=== PATIENT | female | born 1950 | race Caucasian/White ===

== ENCOUNTER → 2017-05-13 20:20 | Outpatient (CLI) | payer MEDICARE ==
[2015-09-05 07:33] VITALS: BMI 25.6
[~2017-05-13 20:20] MED LIST: CARAFATE1 G PO; CATAPRES0.1 MG; CATAPRES0.1 MG PO; ELAVIL25 MG PO; ELAVIL75 MG PO; KEFLEX500 MG PO; LEVOXYL25 MCG PO; LEXAPRO10 MG PO; NORVASC10 MG PO; NORVASC5 MG PO; PERCOCET 10/3251 TA1 PO; PRILOSEC20 MG PO; SYNTHROID50 MCG PO; ZOCOR20 MG; ZOCOR20 MG PO
== END | disposition home or self-care (01) ==
LOC: D.LABREF 20:20
DX: B95.62 Methicillin resistant Staphylococcus aureus infection as the cause of diseases classified elsewhere (principal)

== ENCOUNTER → 2017-11-09 13:43 | Outpatient (CLI) | payer MEDICARE ==
[2015-09-05 07:33] VITALS: BMI 25.6
[~2017-11-09 13:43] MED LIST changes: +CELEXA10 MG PO; +TAMOXIFEN CITRA20 MG PO
== END | disposition home or self-care (01) ==
LOC: D.MAMMO 08:30
DX: C50.112 Malignant neoplasm of central portion of left female breast (principal)

== ENCOUNTER 2017-11-12 11:49 | Day surgery (SDC) | payer MEDICARE ==
[~2017-11-12] VITALS: Ht 157.5 cm; Wt 59.1 kg
[~2017-11-12 11:49] MED LIST changes: -CELEXA10 MG PO; -TAMOXIFEN CITRA20 MG PO
[2017-11-12 12:40] LABS: HEMATOCRIT 37.9 % (36.0-48.0); HEMOGLOBIN 12.9 g/dL (12-16); MCV 88.1 fL (80.0-100.0); MEAN PLATELET VOLUME 9.8 fL (7.4-10.4); RBC 4.3 10x6/uL (4.00-5.40); RDW 12.6 % (11.5-14.5); WBC 7.4 10x3/uL (4.8-10.8)
[2017-11-12] MEDS ORDERED: CELEXA10 MG PO (12:46)
[2017-11-12] MEDS ORDERED: TAMOXIFEN CITRA20 MG PO (12:47)
[2017-11-12 12:49] LABS: ANION GAP 20.7 mmol/L (8-16); CALCIUM 8.6 mg/dL (8.5-10.1); CARBON DIOXIDE 21.3 mmol/L (21.0-32.0); CREATININE - SERUM 2.1 mg/dL (0.6-1.3)
[2017-11-12 12:51] VITALS: BP 130/67; Ht 157.5 cm; Wt 59.1 kg
--- NOTE | 2017-11-25 18:55 | OP ---
PATIENT NAME: ARLEN CAZARES MEDICAL RECORD: [id number] :54 LOCATION:[facility] ADMISSION DATE: SURGEON: KIERRA ALFRED MD DATE OF OPERATION: 11/12/2017 PROCEDURE: Colonoscopy. REFERRING PHYSICIAN: Anu Sierra MD ADOPTION AGENT/ONCOLOGIST: Emiliano Lou MD INDICATIONS: Ms. Cazares is a delightful 67-year-old woman with a history of juvenile rheumatoid arthritis and breast cancer. She has a history of chronic constipation relieved by taking Senokot intermittently and MiraLax. She last had a colonoscopy on 04/24/2010 with finding showing diminutive sigmoid polyps and mild internal hemorrhoids (polyps were hyperplastic in nature). She was diagnosed with breast cancer in 2014 and had left mastectomy with axillary dissection in 08/2015. She presents for outpatient screening colonoscopy. PREMEDICATIONS: Total IV anesthesia (propofol 240 mg). INSTRUMENT: Olympus videocolonoscope. PROCEDURE AND FINDINGS: After receiving informed consent, Ms. Cazares was placed in left lateral decubitus position and sedated as per anesthesia. After achieving an adequate level of sedation, digital rectal exam was performed that showed no external hemorrhoidal tags, fissures, or fistulas. Normal sphincter tone. No palpable rectal masses. Colonoscope was introduced per rectally and advanced to the cecum. She had a long and redundant colon. The cecum, IC valve, and appendiceal orifice were identified. As the colonoscope was withdrawn, careful inspection was made of the terrazas of the colon. Overall mucosa had normal vascular and fold pattern. No polyps, masses, ulcers, or diverticula were seen. Retroflexion in rectum showed minimal internal hemorrhoids. A fair prep was present (indigestible debris within the cecum and ascending colon). Ms. Cazares tolerated the procedure well, no immediate complications. ASSESSMENT: 1. Normal colonoscopy to the cecum. 2. Mild internal hemorrhoids. 3. History of hyperplastic colon polyps. RECOMMENDATIONS: 1. Followup histopathology. 2. High fiber diet. 3. MiraLax daily to b.i.d. as needed. 4. Surveillance colonoscopy in 5 years. TRANSINT:[id number] Voice Confirmation ID: [id number] DOCUMENT ID: [id number] OPERATIVE REPORT [id number] SAGEARLEN KIERRA DELAROSA MD at 1855 CC: EMILIANO LOU MD and ANU SIERRA MD [id number] DICTATION DATE: 11/12/17 1407 CONTRACTS MANAGER: 11/12/17 1442 [facility] 11/12/[address] [facility] [address] [place] [address]
== END 2017-11-12 14:50 | disposition home or self-care (01) ==
LOC: D.OPS 11:49
PROVIDERS: Anesthesiology
DX: Z12.11 Encounter for screening for malignant neoplasm of colon (principal); Z86.010 Personal history of colon polyps; K64.8 Other hemorrhoids; K59.09 Other constipation; Z85.3 Personal history of malignant neoplasm of breast; M08.00 Unspecified juvenile rheumatoid arthritis of unspecified site; Z01.812 Encounter for preprocedural laboratory examination